=== PATIENT | female | born 1960 | race Caucasian/White ===

== ENCOUNTER 2025-05-17 18:23 | Emergency (ER) | payer OTHER, MEDICARE ==
[2025-05-17] MEDS: Proparacaine 0.5% Ophth Soln 15 ML Bottle EYEBOTH ONE (20:01)
[2025-05-17] MEDS: prednisoLONE Acetate 1% Ophth Susp 5 ML Bottle EYELF ONE (21:07)
[2025-05-17] MEDS: Ofloxacin 0.3% Ophth Soln 5 ML Bottle EYELF ONE (21:08)
== END 2025-05-17 21:24 | disposition home or self-care (01) ==
LOC: JP.ED 18:23
DX: H20.9 Unspecified iridocyclitis (principal); Z88.0 Allergy status to penicillin; Z79.899 Other long term (current) drug therapy; Z86.16 Personal history of COVID-19
CPT/HCPCS: 99283; A9270